=== PATIENT | female | born 1985 | race Caucasian/White ===

== ENCOUNTER 2022-02-03 18:01 | Emergency (ER) | payer OTHER ==
[2022-02-03 20:22] VITALS: RESP 16; TEMP 98.2
--- NOTE | 2022-02-03 20:59 | XR ---
EXAMINATION TYPE: XR chest 2V DATE OF EXAM: 02/03/2022 8:29 PM COMPARISON: CT chest from 11/28/2015. TECHNIQUE: XR chest 2V Frontal and lateral views of the chest. CLINICAL INDICATION:Female, 36 years old with history of chest pain; FINDINGS: Lungs/Pleura: There is no evidence of pleural effusion, focal consolidation, or pneumothorax. Pulmonary vascularity: Unremarkable. Heart/mediastinum: Cardiomediastinal silhouette is unremarkable. Musculoskeletal: No acute osseous pathology. IMPRESSION: No acute cardiopulmonary disease/process.
[2022-02-03] MEDS ORDERED: KETOROLAC 15 MG/ML 1 ML VIAL IM STA (22:48)
--- NOTE | 2022-02-03 22:50 | ED ---
General Adult HPI - General Chief complaint: Chest Pain Stated complaint: Swelling/Pain in L Breast Time Seen by Provider: 02/03/22 22:38 Source: patient, RN notes reviewed Mode of arrival: ambulatory Limitations: no limitations - History of Present Illness Initial comments: 36-year-old female presents to the emergency department for evaluation of pain to the left anterior chest wall. Patient states the pain has been ongoing for the past week and worsens with palpation, activity, and coughing. States her left chest feels swollen to her. Is not having difficulty breathing. Denies any fever, chills, dizziness, palpitations, back pain, abdominal pain, nausea, vomiting, diarrhea, dysuria, trauma, injury, or fall. - Related Data Home Medications Medication Instructions Recorded Confirmed Pnv,Calcium 72/Iron/Folic Acid 1 tab PO DAILY 11/25/15 01/15/16 [ Plus Tablet] Previous Rx's Medication Instructions Recorded Acetaminophen-Codeine 300-30mg 2 tab PO Q6H PRN #30 tablet 01/24/16 [Tylenol #3] Ibuprofen [Motrin] 600 mg PO Q8HR PRN #20 tab 02/04/22 Allergies Allergy/AdvReac Type Severity Reaction Status Date / Time No Known Allergies Allergy Verified 02/03/22 20:22 Review of Systems ROS Statement: Those systems with pertinent positive or pertinent negative responses have been documented in the HPI. ROS Other: All systems not noted in ROS Statement are negative. Past Medical History Past Medical History: No Reported History History of Any Multi-Drug Resistant Organisms: None Reported Past Surgical History: Section Past Anesthesia/Blood Transfusion Reactions: No Reported Reaction Past Psychological History: Panic Disorder Smoking Status: Former smoker Past Alcohol Use History: Rare Past Drug Use History: None Reported - Past Family History Mother Family Medical History: No Reported History General Exam Limitations: no limitations (Well-developed, well-nourished female in no acute distress. Initial temperature 98.2, pulse 72, respirations 16, blood pressure 140/93, pulse ox 99% on room air.) General appearance: alert, in no apparent distress Eye exam: Present: normal appearance. Absent: scleral icterus, conjunctival injection ENT exam: Present: normal exam, normal oropharynx, mucous membranes moist Neck exam: Present: normal inspection, full ROM Respiratory exam: Present: normal lung sounds bilaterally, chest wall tenderness (left anterior chest wall tenderness upon palpation of the border of the superior-lateral portion of the breast. No palpable mass. Discomfort in non-localized and does not extend into axillary region. Also has some discomfort along the left lateral chest wall. Non-erythematous. No abrasion/contusion), other (chest wall appears symmetrical). Absent: respiratory distress, wheezes, rales, rhonchi, stridor Cardiovascular Exam: Present: regular rate, normal rhythm, normal heart sounds. Absent: systolic murmur, diastolic murmur, rubs, gallop, clicks GI/Abdominal exam: Present: soft, normal bowel sounds. Absent: distended, tenderness, guarding, rebound, rigid Extremities exam: Present: normal inspection, full ROM, normal capillary refill. Absent: tenderness, pedal edema, joint swelling, calf tenderness Back exam: Present: normal inspection, full ROM Neurological exam: Present: alert, oriented X3, normal gait Psychiatric exam: Present: normal affect, normal mood Skin exam: Present: warm, dry, intact, normal color. Absent: rash Course Vital Signs 02/03/22 02/04/22 20:18 00:32 Temperature 98.2 F Pulse Rate 72 70 Respiratory 16 Rate Blood Pressure 148/93 131/78 O2 Sat by Pulse 99 Oximetry - Reevaluation(s) Reevaluation #1: 02/04/22 00:00 Upon reassessment, patient is resting more comfortably at this time. No tech available for breast ultrasound therefore she will be discharged home to follow up on an outpatient basis. Medical Decision Making - Medical Decision Making 36-year-old female with no significant past medical history presents to the emergency department for evaluation of left anterior chest wall pain around the upper portion of the left breast. Upon exam, patient is well-appearing and in no acute distress. She does have mild tenderness with palpation along the left upper outer border of the left breast that extends laterally, though there are no palpable masses or localized area of tenderness. Chest wall appears symmetrical with no erythema, lesions, or masses. Patient is afebrile with stable vital signs. Two-view chest x-ray was obtained and is unremarkable. EKG shows normal sinus rhythm. There is likely musculoskeletal in nature as it is reproducible with palpation and exacerbated by coughing. Given Toradol with improvement. Patient will be discharged home with anti-inflammatory pain medication and instructed to follow up with her PCP. Return parameters were discussed in detail. Patient verbalizes understanding and agrees with this plan. Attending: Shea. - Radiology Data Radiology results: report reviewed, image reviewed Two-view chest x-ray was obtained. Report was reviewed in its entirety. Impression per Dr. Delatorre is no acute cardiopulmonary disease/process. Disposition Clinical Impression: Anterior chest wall pain Disposition: HOME SELF-CARE Condition: Stable Instructions (If sedation given, give patient instructions): Chest Wall Pain (ED) Additional Instructions: Take Motrin as needed for discomfort. Minimize activity that aggravates or increases the pain. Please follow-up with your PCP for further evaluation and treatment. Return to the emergency department with any new, worsening, or concerning symptoms. Prescriptions: Ibuprofen [Motrin] 600 mg PO Q8HR PRN #20 tab PRN Reason: Pain Is patient prescribed a controlled substance at d/c from ED?: No Referrals: None,Stated [Primary Care Provider] - 1-2 days Time of Disposition: 00:20
[2022-02-04 00:33] VITALS: BP 131/78; PULSE 70
== END 2022-02-04 00:33 | disposition home or self-care (01) ==
LOC: EC 18:01
DX: R07.89 Other chest pain (principal); Z87.891 Personal history of nicotine dependence
CPT/HCPCS: 93005; 71046; 99285; 96372; J1885